=== PATIENT | female | born 1945 | race Caucasian/White ===

== ENCOUNTER 2018-12-01 17:19 | Inpatient (IN) ==
[2018-12-01] MEDS ORDERED: *HR* FentaNYL (PF) 100 MCG/2 ML VIAL ONE (17:24)
[2018-12-01] MEDS ORDERED: 0.9 % Sodium Chloride 1,000 ML ONE (17:24)
[2018-12-01] MEDS ORDERED: FentaNYL (PF) 1,000 MCG in 0.9 % Sodium Chloride 80 ML IVC STA (17:29)
[2018-12-01] MEDS ORDERED: Ipratropium/Albuterol Neb 3 ML ONE (17:30)
[2018-12-01] MEDS ORDERED: *HR* Midazolam HCl 5 MG/5 ML VIAL IVP ONE ×4 (17:31→17:51)
[2018-12-01] MEDS ORDERED: *HR* FentaNYL (PF) 100 MCG/2 ML VIAL IVP ONE (17:34)
[2018-12-01] MEDS ORDERED: 0.9 % Sodium Chloride 1,000 ML IVC ONE ×2 (17:37)
[2018-12-01 17:48] LABS: Basophils # 0.1 K/mcL (0.0-0.2); Basophils % 0.5 %; Eosinophils # 0.7 K/mcL (0.0-0.6); Eosinophils % 4.7 %; Hematocrit 43.1 % (35.3-44.9); Hemoglobin 13.9 g/dL (11.5-15.4); Immature Granulocytes % 0.9 % (0-4); Lymphocytes # 1.6 K/mcL (0.6-4.6); Lymphocytes % 10.9 %; Mean Corpuscular HGB Conc 32.3 g/dL (31.6-35.5); Mean Corpuscular Hemoglobin 31.6 pg (28.0-33.3); Mean Platelet Volume 8.5 fL (9.4-12.4); Monocytes # 0.8 K/mcL (0.0-1.3); Monocytes % 5.6 %; Neutrophils # 11.6 K/mcL (1.6-8.9); Platelet Count 313 K/mcL (140-400); Red Cell Distribution Width 13.7 % (11.5-14.5); Segmented Neutrophils % 77.4 %
[2018-12-01] MEDS ORDERED: *HR* Midazolam HCl 2 MG/2 ML VIAL IVP STA (17:50)
[2018-12-01] MEDS ORDERED: *HR* Midazolam HCl 5 MG/5 ML VIAL IVP STA (17:55)
[2018-12-01 17:56] LABS: ABG Base Excess -1 mEq/L (-2 to 3); ABG HCO3 26 mEq/L (21-27); ABG PCO2 52 mmHg (35-45); ABG PO2 > 630 mmHg (85-104); ABG TCO2 27 mEq/L (20-26); Blood Gas Modality AF; Blood Gas PEEP 5 cm H2O; Blood Gas VT 480 cc
[2018-12-01] MEDS ORDERED: 0.9 % Sodium Chloride 500 ML ONE (17:56)
[2018-12-01] MEDS ORDERED: Scopolamine Patch 1.5 MG PATCH.TD72 TD STA (18:07)
--- NOTE | 2018-12-01 18:10 | Emergency Department Note ---
Disposition Clinical Impression: COPD exacerbation Altered mental status Qualifiers: Altered mental status type: coma Coma depth: [place] coma 3-8 Coma timing: in the field (EMT or ambulance) Qualified Code(s): R40.2431 - [place] coma scale score 3-8, in the field [EMT or ambulance] Respiratory failure Qualifiers: Chronicity: acute Respiratory failure complication: hypoxia Qualified Code(s): J96.01 - Acute respiratory failure with hypoxia Disposition: Admitted As Inpatient Condition: Good Time of Disposition: 23:44 General Adult HPI - General Chief complaint: ED Shortness of Breath/Dyspnea Stated complaint: unreponsive Time Seen by Provider: 12/01/18 17:32 Source: EMS - History of Present Illness Pain Scale: 0 - Related Data Home Medications Medication Instructions Recorded Confirmed Albuterol Sulfate [Proair 1 puff IH PRN PRN 02/15/17 10/04/17 Respiclick] Calcium Citrate/Vitamin D3 1 each PO DAILY 02/15/17 10/04/17 [Calcium Citrate - Vit D Caplet] Fluticasone/Salmeterol [Advair 1 each IH DAILY 02/16/17 10/04/17 100-50 Diskus] Albuterol Sulfate [Proair Hfa] 2 puff IH Q4H PRN 12/01/18 12/01/18 Umeclidinium Brm/Vilanterol Tr 1 each IH DAILY 12/01/18 12/01/18 [Anoro Ellipta 62.5-25 Mcg INH] predniSONE [PredniSONE] 10 mg PO DAILY 12/01/18 12/01/18 Allergies Allergy/AdvReac Type Severity Reaction Status Date / Time aspirin AdvReac Nose Bleed Verified 12/02/18 09:55 Past Medical History - Past Medical History Medical history: Reports: other - Social History Smoking Status: Unknown if ever smoked Smokeless Tobacco Status: No Alcohol use: Reports: none Drug use: Reports: none Physical Exam - General General appearance: alert, in no apparent distress Course Vital Signs Temperature 97.7 F 12/01/18 17:21 Pulse Rate 133 12/01/18 17:21 Respiratory Rate 16 12/01/18 17:21 Blood Pressure 95/82 12/01/18 17:21 O2 Sat by Pulse Oximetry 100 12/01/18 17:21 Temperature 98.2 F 12/02/18 16:11 Pulse Rate 106 12/02/18 16:11 Respiratory Rate 22 12/02/18 16:11 Blood Pressure 116/70 12/02/18 16:11 O2 Sat by Pulse Oximetry 93 12/02/18 18:13 Oxygen Delivery Oxygen Delivery Bipap Medical Decision Making - Lab Data Result diagrams: 12/02/18 04:52 12/02/18 04:52 Lab Results 12/01/18 12/01/18 12/01/18 Range/Units 17:22 17:32 17:32 WBC 15.0 H (4.3-11.1) K/mcL RBC 4.40 (3.82-4.97) M/mcL Hgb 13.9 (11.5-15.4) g/dL Hct 43.1 (35.3-44.9) % MCV 98.0 (83.0-100.0) fL MCH 31.6 (28.0-33.3) pg MCHC 32.3 (31.6-35.5) g/dL RDW 13.7 (11.5-14.5) % Plt Count 313 (140-400) K/mcL MPV 8.5 L (9.4-12.4) fL Immature Gran % 0.9 (0-4) % Seg Neutrophils % 77.4 % Lymphocytes % 10.9 % Monocytes % 5.6 % Eosinophils % 4.7 % Basophils % 0.5 % Neutrophils # 11.6 H (1.6-8.9) K/mcL Lymphocytes # 1.6 (0.6-4.6) K/mcL Monocytes # 0.8 (0.0-1.3) K/mcL Eosinophils # 0.7 H (0.0-0.6) K/mcL Basophils # 0.1 (0.0-0.2) K/mcL Sample Site ABG pH (7.32-7.45) pH Units ABG pCO2 (35-45) mmHg ABG pO2 (85-104) mmHg ABG HCO3 (21-27) mEq/L ABG Total CO2 (20-26) mEq/L ABG O2 Saturation ABG Base Excess (-2 to 3) mEq/L Mickey Test Respiration Rate O2 Delivery Device Blood Gas Modality Inspired O2 (1-15=lpm dd30-636=%) Tidal Volume cc PEEP cm H2O Sodium 139 (136-145) mEq/L Potassium 4.0 (3.5-5.1) mEq/L Chloride 102 (98-107) mEq/L Carbon Dioxide 27 (23-29) mEq/L BUN 18 (8-23) mg/dL Creatinine 0.84 (0.60-1.20) mg/dL Est GFR ( Amer) > 60 (> 60) Est GFR (Non-Af Amer) > 60 (> 60) BUN/Creatinine Ratio 21 (6-26) Glucose 159 H (70-105) mg/dL POC Glucose 143 H (70-99) mg/dL Calculated Osmolality 293 (280-300) Lactic Acid (0.5-2.2) mmol/L Calcium 8.9 (8.6-10.3) mg/dL Total Bilirubin 0.4 (0.3-1.0) mg/dL Direct Bilirubin 0.1 (0.0-0.2) mg/dL Indirect Bilirubin 0.3 (0.0-1.2) mg/dL AST 30 (13-39) Units/L ALT 12 (7-52) Units/L Alkaline Phosphatase 40 (34-104) Units/L Troponin I < 0.03 (< 0.04) ng/mL Serum Total Protein 6.1 L (6.4-8.9) g/dL Albumin 3.8 (3.5-5.7) g/dL Globulin 2.3 L (2.4-3.5) g/dL Albumin/Globulin Ratio 1.7 (1.1-2.2) Specimen Rejected 12/01/18 12/01/18 12/01/18 Range/Units 17:32 17:49 21:24 WBC (4.3-11.1) K/mcL RBC (3.82-4.97) M/mcL Hgb (11.5-15.4) g/dL Hct (35.3-44.9) % MCV (83.0-100.0) fL MCH (28.0-33.3) pg MCHC (31.6-35.5) g/dL RDW (11.5-14.5) % Plt Count (140-400) K/mcL MPV (9.4-12.4) fL Immature Gran % (0-4) % Seg Neutrophils % % Lymphocytes % % Monocytes % % Eosinophils % % Basophils % % Neutrophils # (1.6-8.9) K/mcL Lymphocytes # (0.6-4.6) K/mcL Monocytes # (0.0-1.3) K/mcL Eosinophils # (0.0-0.6) K/mcL Basophils # (0.0-0.2) K/mcL Sample Site ABG pH 7.30 L (7.32-7.45) pH Units ABG pCO2 52 H (35-45) mmHg ABG pO2 > 630 H (85-104) mmHg ABG HCO3 26 (21-27) mEq/L ABG Total CO2 27 H (20-26) mEq/L ABG O2 Saturation TNP ABG Base Excess -1 (-2 to 3) mEq/L Mickey Test Respiration Rate 16 O2 Delivery Device Adult Vent Blood Gas Modality AF Inspired O2 100.0 (1-15=lpm lc52-115=%) Tidal Volume 480 cc PEEP 5 cm H2O Sodium (136-145) mEq/L Potassium (3.5-5.1) mEq/L Chloride (98-107) mEq/L Carbon Dioxide (23-29) mEq/L BUN (8-23) mg/dL Creatinine (0.60-1.20) mg/dL Est GFR ( Amer) (> 60) Est GFR (Non-Af Amer) (> 60) BUN/Creatinine Ratio (6-26) Glucose (70-105) mg/dL POC Glucose (70-99) mg/dL Calculated Osmolality (280-300) Lactic Acid 3.9 H 2.5 H (0.5-2.2) mmol/L Calcium (8.6-10.3) mg/dL Total Bilirubin (0.3-1.0) mg/dL Direct Bilirubin (0.0-0.2) mg/dL Indirect Bilirubin (0.0-1.2) mg/dL AST (13-39) Units/L ALT (7-52) Units/L Alkaline Phosphatase (34-104) Units/L Troponin I (< 0.04) ng/mL Serum Total Protein (6.4-8.9) g/dL Albumin (3.5-5.7) g/dL Globulin (2.4-3.5) g/dL Albumin/Globulin Ratio (1.1-2.2) Specimen Rejected 12/02/18 12/02/18 12/02/18 Range/Units 04:52 04:52 04:52 WBC 12.7 H (4.3-11.1) K/mcL RBC 4.35 (3.82-4.97) M/mcL Hgb 13.9 (11.5-15.4) g/dL Hct 42.9 (35.3-44.9) % MCV 98.6 (83.0-100.0) fL MCH 32.0 (28.0-33.3) pg MCHC 32.4 (31.6-35.5) g/dL RDW 13.7 (11.5-14.5) % Plt Count 321 (140-400) K/mcL MPV 8.6 L (9.4-12.4) fL Immature Gran % (0-4) % Seg Neutrophils % % Lymphocytes % % Monocytes % % Eosinophils % % Basophils % % Neutrophils # (1.6-8.9) K/mcL Lymphocytes # (0.6-4.6) K/mcL Monocytes # (0.0-1.3) K/mcL Eosinophils # (0.0-0.6) K/mcL Basophils # (0.0-0.2) K/mcL Sample Site ABG pH (7.32-7.45) pH Units ABG pCO2 (35-45) mmHg ABG pO2 (85-104) mmHg ABG HCO3 (21-27) mEq/L ABG Total CO2 (20-26) mEq/L ABG O2 Saturation ABG Base Excess (-2 to 3) mEq/L Mickey Test Respiration Rate O2 Delivery Device Blood Gas Modality Inspired O2 (1-15=lpm pj30-629=%) Tidal Volume cc PEEP cm H2O Sodium 137 (136-145) mEq/L Potassium 4.7 (3.5-5.1) mEq/L Chloride 105 (98-107) mEq/L Carbon Dioxide 23 (23-29) mEq/L BUN 18 (8-23) mg/dL Creatinine 0.75 (0.60-1.20) mg/dL Est GFR ( Amer) > 60 (> 60) Est GFR (Non-Af Amer) > 60 (> 60) BUN/Creatinine Ratio 24 (6-26) Glucose 133 H (70-105) mg/dL POC Glucose (70-99) mg/dL Calculated Osmolality 288 (280-300) Lactic Acid (0.5-2.2) mmol/L Calcium 8.9 (8.6-10.3) mg/dL Total Bilirubin 0.6 (0.3-1.0) mg/dL Direct Bilirubin (0.0-0.2) mg/dL Indirect Bilirubin (0.0-1.2) mg/dL AST 27 (13-39) Units/L ALT 14 (7-52) Units/L Alkaline Phosphatase 44 (34-104) Units/L Troponin I (< 0.04) ng/mL Serum Total Protein 6.1 L (6.4-8.9) g/dL Albumin 4.0 (3.5-5.7) g/dL Globulin 2.1 L (2.4-3.5) g/dL Albumin/Globulin Ratio 1.9 (1.1-2.2) Specimen Rejected Hemolyzed 12/02/18 12/02/18 Range/Units 05:58 06:29 WBC (4.3-11.1) K/mcL RBC (3.82-4.97) M/mcL Hgb (11.5-15.4) g/dL Hct (35.3-44.9) % MCV (83.0-100.0) fL MCH (28.0-33.3) pg MCHC (31.6-35.5) g/dL RDW (11.5-14.5) % Plt Count (140-400) K/mcL MPV (9.4-12.4) fL Immature Gran % (0-4) % Seg Neutrophils % % Lymphocytes % % Monocytes % % Eosinophils % % Basophils % % Neutrophils # (1.6-8.9) K/mcL Lymphocytes # (0.6-4.6) K/mcL Monocytes # (0.0-1.3) K/mcL Eosinophils # (0.0-0.6) K/mcL Basophils # (0.0-0.2) K/mcL Sample Site R Radial ABG pH 7.39 (7.32-7.45) pH Units ABG pCO2 45 (35-45) mmHg ABG pO2 249 H (85-104) mmHg ABG HCO3 27 (21-27) mEq/L ABG Total CO2 28 H (20-26) mEq/L ABG O2 Saturation 100 H ABG Base Excess 1 (-2 to 3) mEq/L Mickey Test Positive Respiration Rate O2 Delivery Device BiPAP Blood Gas Modality Inspired O2 50.0 (1-15=lpm po49-273=%) Tidal Volume cc PEEP cm H2O Sodium (136-145) mEq/L Potassium (3.5-5.1) mEq/L Chloride (98-107) mEq/L Carbon Dioxide (23-29) mEq/L BUN (8-23) mg/dL Creatinine (0.60-1.20) mg/dL Est GFR ( Amer) (> 60) Est GFR (Non-Af Amer) (> 60) BUN/Creatinine Ratio (6-26) Glucose (70-105) mg/dL POC Glucose (70-99) mg/dL Calculated Osmolality (280-300) Lactic Acid 1.5 (0.5-2.2) mmol/L Calcium (8.6-10.3) mg/dL Total Bilirubin (0.3-1.0) mg/dL Direct Bilirubin (0.0-0.2) mg/dL Indirect Bilirubin (0.0-1.2) mg/dL AST (13-39) Units/L ALT (7-52) Units/L Alkaline Phosphatase (34-104) Units/L Troponin I (< 0.04) ng/mL Serum Total Protein (6.4-8.9) g/dL Albumin (3.5-5.7) g/dL Globulin (2.4-3.5) g/dL Albumin/Globulin Ratio (1.1-2.2) Specimen Rejected Attestation Statement - Attestation Attestation: I examined this patient and my medical decision-making was reviewed with the Resident Physician. I agree with the documented findings, disposition and treatment plan as described except to the extent set forth below. Patient 73-year-old female that presents to emergency department with chief complaint of unresponsiveness and shortness of breath. Per the family the patient has history of end-stage COPD and today was increasing shortness of breath. The patient has also been having intermittent fevers. When EMS arrived the patient was minimally responsive and was having agonal respirations. The patient was intubated in the field by EMS. Once the patient arrived in the emergency department the patient is was initially sedated and in discussion with the patient's family the patient is a DNR and did not want intubation. The family was been adamant that the patient would not want to be intubated and has expressed the desire for the patient to be extubated. Currently we are waiting on the effects of the medications Exam patient is sedated and intubated on a ventilator patient is requiring sedation to maintain adequate ventilatory support. Medical decision management the patient will be extubated due to the patient wishes to not be intubated and the patient is family and that the patient would not want to be extubated even if it meant that she would . The patient will be treated for a COPD exacerbation and plan will be to admit the patient to hospital
[2018-12-01 18:12] LABS: Alanine Aminotransferase 12 Units/L (7-52); Albumin 3.8 g/dL (3.5-5.7); Albumin/Globulin Ratio 1.7 (1.1-2.2); Alkaline Phosphatase 40 Units/L (34-104); Aspartate Amino Transferase 30 Units/L (13-39); BUN/Creatinine Ratio 21 (6-26); Bilirubin,Direct 0.1 mg/dL (0.0-0.2); Bilirubin,Indirect 0.3 mg/dL (0.0-1.2); Bilirubin,Total 0.4 mg/dL (0.3-1.0); Blood Urea Nitrogen 18 mg/dL (8-23); Calcium 8.9 mg/dL (8.6-10.3); Carbon Dioxide 27 mEq/L (23-29); Chloride 102 mEq/L (98-107); Globulin 2.3 g/dL (2.4-3.5); Glucose 159 mg/dL (70-105); Osmolality,Calculated 293 (280-300); Sodium 139 mEq/L (136-145); Total Protein 6.1 g/dL (6.4-8.9); Troponin I < 0.03 ng/mL (< 0.04); eGFR For African Americans > 60 (> 60); eGFR For Non-African Americans > 60 (> 60)
--- NOTE | 2018-12-01 18:19 | Emergency Department Note ---
Disposition Clinical Impression: COPD exacerbation Altered mental status Qualifiers: Altered mental status type: coma Coma depth: [place] coma 3-8 Coma timing: in the field (EMT or ambulance) Qualified Code(s): R40.2431 - [place] coma scale score 3-8, in the field [EMT or ambulance] Respiratory failure Qualifiers: Chronicity: acute Respiratory failure complication: hypoxia Qualified Code(s): J96.01 - Acute respiratory failure with hypoxia Disposition: Admitted As Inpatient Condition: Good Referrals: Don Ortiz MD [Primary Care Provider] - Forms: ED Satisfaction Letter Time of Disposition: 23:44 General Adult HPI - General Chief complaint: ED Shortness of Breath/Dyspnea Stated complaint: unreponsive Time Seen by Provider: 12/01/18 17:32 Source: EMS Limitations: no limitations Nursing Notes Reviewed: Yes Vital Signs Reviewed: Yes - History of Present Illness HPI Narrative: Female patient presents to the emergency department in full respiratory arrest by EMS. She was found unresponsive and not breathing at home by EMS. She was given sedation medication and intubated. She had a pulse throughout the time. The states she does have a history of COPD and she had been progressively getting sicker recently. States that today she was very short of breath. Sat down on the toilet to go to the bathroom became increasingly short of breath and slumped over. States that she was unresponsive and stopped breat radha so he helped her to the floor. He states prior to her going to the floor she had her right arm stretched out in front of her. Pain Scale: 0 - Related Data Home Medications Medication Instructions Recorded Confirmed Albuterol Sulfate [Proair Hfa] 2 puff IH Q4H PRN 12/01/18 12/01/18 Umeclidinium Brm/Vilanterol Tr 1 each IH DAILY 12/01/18 12/01/18 [Anoro Ellipta 62.5-25 Mcg INH] predniSONE [PredniSONE] 10 mg PO DAILY 12/01/18 12/01/18 Allergies Allergy/AdvReac Type Severity Reaction Status Date / Time aspirin [ASA] AdvReac Anaphylaxis Verified 12/01/18 17:34 Limitations: ROS unobtainable due to patients medical condition Past Medical History - Past Medical History Source: obtained from family Medical history: Reports: COPD, other - Social History Smoking Status: Unknown if ever smoked Smokeless Tobacco Status: No Alcohol use: Reports: none Drug use: Reports: none Physical Exam - General Limitations: altered mental status General appearance: other (Withdrawals to pain. Not purposeful. Has moved all 4 extremities but again not purposeful.) - Head Head exam: atraumatic, normocephalic, normal inspection - Eye Eye exam: Present: normal appearance, PERRL, EOMI. Absent: scleral icterus - ENT ENT exam: normal exam, normal oropharynx, mucous membranes moist - Neck Neck exam: Present: normal inspection, trachea midline. Absent: tenderness, meningismus - Chest Chest inspection: Present: normal inspection, symmetric chest wall rise. Absent: tenderness - Respiratory Respiratory exam: Present: other (Tight throughout. Currently being bagged. No spontaneous respirations.) - Cardiovascular Cardiovascular exam: Present: regular rate, normal rhythm, normal heart sounds - Abdominal Exam Abdominal exam: Present: soft. Absent: distention, rigidity, organomegaly - Extremities Exam Extremities exam: Present: normal inspection, full ROM, other (No signs of trauma. Patient has been noted to move all of her extremities. They are not currently purposeful. She will not follow commands.). Absent: tenderness, pedal edema - Skin Skin exam: Present: warm, dry, intact, normal color. Absent: rash, cyanosis, diaphoresis Course Course Narrative: Female patient unresponsive. Intubated in the field. Was given 125 of Solu- Medrol as well as 40 of etomidate and 5 of Versed. They have noted that she was in respiratory arrest whenever they got to her. No trauma noted. The report no difficulty with the intubation. Patient has condensation in the ET tube with a tidal CO2 in the 40s. Chest x-ray was performed and shows good placement of the ET tube. Patient has very tight lung sounds throughout. We did provide pat ient with a DuoNeb through the ET tube. Patient had a very good response to this. With lung sounds that became clear and area did well after. She occasionally was coughing over the ET tube but would withdraw from pain cannot follow commands. Could not appreciate any trauma to her body. Objective believe that this is likely a respiratory failure secondary to COPD exacerbation as the states that she was having severe shortness of breath prior to her syncope. Does have a history of colon cancer. Abdomen is soft and nondistended. No fluid wave noted. We will get a head CT basic lab workup and provide patient with antibiotics for COPD exacerbation. Her is providing paperwork that states that he is the power of mergers and acquisitions attorney. He is seeing the patient would never want to be intubated. States that he would like for us to withdraw the ET tube at this time. I discussed that the patient had been given sedating medication and I do not feel that is acceptable at this time. He expressed understanding at this time. He is waiting for previous to come. I will further discuss this with him after the zig zag stitcher arrives. Currently I do not feel it is in the patient's best interest that she is heavily sedated with etomidate as well as first set and fentanyl. She was given an additional dose when she arrived in the trauma bay prior to the arriving secondary to her tearing up. - Reevaluation(s) Reevaluation #1: I had a lengthy discussion with the patient's . He does have the power of mergers and acquisitions attorney. He states multiple times that she would not want to be intubated. He states that he would like for her to be extubated at this time. States that this is what she would want. He reports that he did tell EMS that she would not want to be intubated. Patient has a power of mergers and acquisitions attorney paper with him. I discussed several times that we could not immediately extubated patient and she does have medication on board the its sedating. He becomes aggressive but expresses understanding. He is aware and I have told him multiple different ways that the patient may pass away as soon as we extubate her. She could also struggle to breathe when we extubated her. He expresses understanding and states that this is what she would want. He states that he does not want to wait for a couple days to see if the patient turns around she would not want that. I discussed that there is a chance because we intubated the patient that she would be weaker than her normal state and this may also contribute to her and he expresses understanding. Time: 18:00 Reevaluation #2: Patient is now responding to commands. She is opening her eyes. Still on BiPAP with a rate currently. Oxygen saturation is maintaining 100%. She was given Solu-Medrol by EMS. We did start her on antibiotics as well. CT of her chest with contrast shows no acute infiltrate. CTA of her head and neck without acute disease. We will admit patient to the hospital at this time. I do believe this is likely secondary to respiratory arrest secondary to her COPD exacerbation as her lung sounds were very tight when she initially arrived. I spoke with the stroke neurologist about the patient who requested a CTA of the head and neck. He states that if we are still concerned for an stroke she could have an MRI performed as an inpatient. Again she is currently moving all 4 extremities. She did have an infiltrate of her IV contrast in the left forearm. This area is mildly erythematous. A cold pack was placed and the area was injected per our protocol for infiltrate. Time: 23:26 - Consultations Consultation #1: I spoke with the neurologist at [facility]. He states that the story is very strong for a stroke however does recommend a CTA of the head and neck. States that the patient is currently out of the window for TPA however if there is a large vessel occlusion they would recommend to go to [facility] for a thrombectomy. We will obtain a CT at this time. Time: 21:54 Vital Signs Temperature 97.7 F 12/01/18 17:21 Pulse Rate 133 12/01/18 17:21 Respiratory Rate 16 12/01/18 17:21 Blood Pressure 95/82 12/01/18 17:21 O2 Sat by Pulse Oximetry 100 12/01/18 17:21 Temperature 97.7 F 12/01/18 17:21 Pulse Rate 100 12/01/18 23:13 Respiratory Rate 20 12/01/18 23:13 Blood Pressure 104/71 12/01/18 23:13 O2 Sat by Pulse Oximetry 100 12/01/18 23:13 Oxygen Delivery Oxygen Delivery Bipap Medical Decision Making - Medical Records Medical records reviewed: Yes I reviewed the patient's medical records. - Lab Data Lab results reviewed: Yes I reviewed the patient's lab results. Result diagrams: 12/01/18 17:32 12/01/18 17:32 Lab Results 12/01/18 12/01/18 12/01/18 Range/Units 17:32 17:32 17:32 WBC 15.0 H (4.3-11.1) K/mcL RBC 4.40 (3.82-4.97) M/mcL Hgb 13.9 (11.5-15.4) g/dL Hct 43.1 (35.3-44.9) % MCV 98.0 (83.0-100.0) fL MCH 31.6 (28.0-33.3) pg MCHC 32.3 (31.6-35.5) g/dL RDW 13.7 (11.5-14.5) % Plt Count 313 (140-400) K/mcL MPV 8.5 L (9.4-12.4) fL Immature Gran % 0.9 (0-4) % Seg Neutrophils % 77.4 % Lymphocytes % 10.9 % Monocytes % 5.6 % Eosinophils % 4.7 % Basophils % 0.5 % Neutrophils # 11.6 H (1.6-8.9) K/mcL Lymphocytes # 1.6 (0.6-4.6) K/mcL Monocytes # 0.8 (0.0-1.3) K/mcL Eosinophils # 0.7 H (0.0-0.6) K/mcL Basophils # 0.1 (0.0-0.2) K/mcL ABG pH (7.32-7.45) pH Units ABG pCO2 (35-45) mmHg ABG pO2 (85-104) mmHg ABG HCO3 (21-27) mEq/L ABG Total CO2 (20-26) mEq/L ABG O2 Saturation ABG Base Excess (-2 to 3) mEq/L Respiration Rate O2 Delivery Device Blood Gas Modality Inspired O2 (1-15=lpm lz29-037=%) Tidal Volume cc PEEP cm H2O Sodium 139 (136-145) mEq/L Potassium 4.0 (3.5-5.1) mEq/L Chloride 102 (98-107) mEq/L Carbon Dioxide 27 (23-29) mEq/L BUN 18 (8-23) mg/dL Creatinine 0.84 (0.60-1.20) mg/dL Est GFR ( Amer) > 60 (> 60) Est GFR (Non-Af Amer) > 60 (> 60) BUN/Creatinine Ratio 21 (6-26) Glucose 159 H (70-105) mg/dL Calculated Osmolality 293 (280-300) Lactic Acid 3.9 H (0.5-2.2) mmol/L Calcium 8.9 (8.6-10.3) mg/dL Total Bilirubin 0.4 (0.3-1.0) mg/dL Direct Bilirubin 0.1 (0.0-0.2) mg/dL Indirect Bilirubin 0.3 (0.0-1.2) mg/dL AST 30 (13-39) Units/L ALT 12 (7-52) Units/L Alkaline Phosphatase 40 (34-104) Units/L Troponin I < 0.03 (< 0.04) ng/mL Serum Total Protein 6.1 L (6.4-8.9) g/dL Albumin 3.8 (3.5-5.7) g/dL Globulin 2.3 L (2.4-3.5) g/dL Albumin/Globulin Ratio 1.7 (1.1-2.2) 12/01/18 12/01/18 Range/Units 17:49 21:24 WBC (4.3-11.1) K/mcL RBC (3.82-4.97) M/mcL Hgb (11.5-15.4) g/dL Hct (35.3-44.9) % MCV (83.0-100.0) fL MCH (28.0-33.3) pg MCHC (31.6-35.5) g/dL RDW (11.5-14.5) % Plt Count (140-400) K/mcL MPV (9.4-12.4) fL Immature Gran % (0-4) % Seg Neutrophils % % Lymphocytes % % Monocytes % % Eosinophils % % Basophils % % Neutrophils # (1.6-8.9) K/mcL Lymphocytes # (0.6-4.6) K/mcL Monocytes # (0.0-1.3) K/mcL Eosinophils # (0.0-0.6) K/mcL Basophils # (0.0-0.2) K/mcL ABG pH 7.30 L (7.32-7.45) pH Units ABG pCO2 52 H (35-45) mmHg ABG pO2 > 630 H (85-104) mmHg ABG HCO3 26 (21-27) mEq/L ABG Total CO2 27 H (20-26) mEq/L ABG O2 Saturation TNP ABG Base Excess -1 (-2 to 3) mEq/L Respiration Rate 16 O2 Delivery Device Adult Vent Blood Gas Modality AF Inspired O2 100.0 (1-15=lpm sb64-339=%) Tidal Volume 480 cc PEEP 5 cm H2O Sodium (136-145) mEq/L Potassium (3.5-5.1) mEq/L Chloride (98-107) mEq/L Carbon Dioxide (23-29) mEq/L BUN (8-23) mg/dL Creatinine (0.60-1.20) mg/dL Est GFR ( Amer) (> 60) Est GFR (Non-Af Amer) (> 60) BUN/Creatinine Ratio (6-26) Glucose (70-105) mg/dL Calculated Osmolality (280-300) Lactic Acid 2.5 H (0.5-2.2) mmol/L Calcium (8.6-10.3) mg/dL Total Bilirubin (0.3-1.0) mg/dL Direct Bilirubin (0.0-0.2) mg/dL Indirect Bilirubin (0.0-1.2) mg/dL AST (13-39) Units/L ALT (7-52) Units/L Alkaline Phosphatase (34-104) Units/L Troponin I (< 0.04) ng/mL Serum Total Protein (6.4-8.9) g/dL Albumin (3.5-5.7) g/dL Globulin (2.4-3.5) g/dL Albumin/Globulin Ratio (1.1-2.2) - Radiology Data Radiology results reviewed: Yes I reviewed the patient's radiology results. Chest X-Ray 12/01/18 17:33 IMPRESSION: No acute abnormality. D/ / Basilio Manriquez MD / Basilio Manriquez MD Interpreting Provider: Basilio Manriquez MD Head CT 12/01/18 17:35 IMPRESSION: 1. No acute intracranial hemorrhage or global mass effect. 2. Chronic atrophy and extensive microvascular ischemic disease. D/ / 12/01/2018 19:40:18 John Cunningham MD / james Interpreting Provider: John Cunningham MD Head CTA 12/01/18 21:50 IMPRESSION: Unremarkable CTA of the head and neck. Chronic small vessel ischemic disease. D/ / Kolby Sessions / Kolby Sessions Interpreting Provider: Kolby Sessions Neck CTA 12/01/18 21:50 IMPRESSION: Unremarkable CTA of the head and neck. Chronic small vessel ischemic disease. D/ / Kolby Sessions / Kolby Sessions Interpreting Provider: Kolby Sessions Chest CT 12/01/18 21:56 IMPRESSION: No acute disease. Centrilobular emphysema without airspace consolidation or pneumothorax. Technologist note states that there is contrast extravasation explaining the poor opacification of the vasculature. D/ / Yazan Lopez / Yazan Lopez Interpreting Provider: Yazan Lopez - EKG Data EKG #1 EKG attestation: Yes I reviewed and interpreted this EKG. EKG results narrative: Sinus tachycardia at a rate of 129. FL interval is 67. QRS duration is 87. QT is 347. QTC is 509. Patient does have a prolonged QT interval. He appears to have right atrial enlargement secondary to a notched P wave.
[2018-12-01] MEDS ORDERED: Piperacillin/Tazobactam 3.375 GM in 0.9 % Sodium Chloride Mini Bag 100 ML IVPB STA (20:02)
[2018-12-01] MEDS ORDERED: *HR* LORazepam 2 MG/ML VIAL ONE (20:38)
[2018-12-01] MEDS ORDERED: Azithromycin 500 MG in 0.9 % Sodium Chloride 250 ML IVPB ONE (20:44)
[2018-12-01] MEDS ORDERED: Ipratropium/Albuterol Neb 3 ML IH STA (20:50)
[2018-12-01] MEDS ORDERED: Isovue-370 500 ML BOTTLE IVP ONE (21:50)
[2018-12-02] MEDS ORDERED: Naloxone 0.4 MG/ML INJ IVP PRN (04:17)
[2018-12-02] MEDS ORDERED: 0.9 % Sodium Chloride 1,000 ML IVC ONE (04:23)
[2018-12-02] MEDS ORDERED: Albuterol 2.5 MG/3 ML NEBULIZER IH PRN (04:27)
--- NOTE | 2018-12-02 04:43 | Internal Med History&Physical ---
Date of Encounter: 12/02/18 Time of Encounter: 04:04 Internal Medicine - H&P: HPI Chief complaint: Acute hypoxic respiratory failure Admitted From: Emergency Dept Plans for Post Hospital Care: Home History of present illness: Ms. Silva is a 73 year old female Patient presented to the emergency department after being intubated in the field. Patient does not recall the event leading to her hospitalization, is not available at bedside. Details of the history obtained from the ER records. She was found at home not breathing in full respiratory arrest by the EMS squad. She did however have a pulse. She was given sedation medicine and intubated. She was then transported to the ER for further management. The states that the patient has a history of COPD and has been getting more ill recently. Today she had been very short of breath, went to sit down on the toilet and became more short of breath and then slumped over. Despite the patient's parent wishes of not ever being intubated or resuscitated, she was intubated by the EMS squad. Upon arrival to the ER the patient's was very adamant to have the patient extubated as this was not what she would have wanted. Emergency department provided her with IV steroids as well as further sedation medicines. There exam revealed the patient was very wheezy and tight and breathing treatments were provided. She was still unresponsive and not following commands. The emergency department physician discussed at length with the patient's regarding extubation. Continued to express that he would like her to be extubated and eventually extubation was performed. She was then placed on BiPAP and had 100% saturation of oxygen. Because of her initial presentation the emergency department also performed head CT's to help rule out possible stroke and spoke with on-call neurology at [facility] head CT and angiograms were negative for acute abnormalities. The [facility] neurologist recommended MRI to be performed if stroke is still a concern. Patient had no noticeable neuro deficits on exam. She was then admitted to the hospital on BiPAP in stable and improved condition. Emergency department vital signs: Temperature 97.7, pulse 133, respiratory rate 16, blood pressure 95/82, O2 saturation 90% on the ventilator CBC: White count 15.0, otherwise within normal limits BMP notable for a glucose of 159, otherwise within normal limits. Patient's initial lactic acid was 3.9, improving to 2.5 after 2 L of IV fluids. ABG: PH 7.3, PCO2 of 52, PO2 greater than 630 EKG showed sinus tachycardia, rate 129, QTC 509. No ST elevations or de pressions. Imaging as below, no acute abnormalities or infiltrates noted. Patient does have central lobar emphysema however on chest CT. Upon my evaluation, patient is resting comfortably in hospital bed in no acute distress. She is arousable and easily awakened. She is awake alert oriented 3. She is continue to use the BiPAP mask and is tolerating it well. She answers questions and is fully cooperative with the exam. She does not recall the events of the day leading up to hospitalization. She denies chest pain, abdominal pain, nausea, vomiting, diarrhea and constipation. She does recall that she had been feeling somewhat short of breath the last few days. She is also had a cough but it has been nonproductive. She does not wear oxygen at home. As per patient's she is DNR/DNI. Past Med Surg Social Fam HX - Past Medical History Medical history: COPD, other Additional medical history: unable to obtain - Social History Smoking Status: Unknown if ever smoked Smokeless Tobacco Status: No Alcohol use: none Drug use: none Internal Medicine - H&P: Meds Albuterol Sulfate [Proair Hfa] 2 puff IH Q4H PRN 12/01/18 [History] Umeclidinium Brm/Vilanterol Tr [Anoro Ellipta 62.5-25 Mcg INH] 1 each IH DAILY 12/01/18 [History] predniSONE [PredniSONE] 10 mg PO DAILY 12/01/18 [History] Allergy/AdvReac Type Severity Reaction Status Date / Time aspirin [ASA] AdvReac Anaphylaxis Verified 12/01/18 17:34 All Systems PM: A 10-system review of systems was performed and is negative for pertinent findings except as documented above in the HPI. - Constitutional Vitals: Temp Pulse Resp BP Pulse Ox 97.7 F 100 28 121/69 100 12/01/18 17:21 12/01/18 23:13 12/02/18 03:52 12/02/18 03:52 12/02/18 03:52 General appearance: Present: cooperative, A&O X 3, pleasant, no acute distress, answers questions appropriately Exam: - - Head Head exam: Present: normal inspection - Eye Eye exam: Present: EOMI, normal appearance - Respiratory Respiratory exam: Present: decreased breath sounds, CTAB. Absent: rales, respiratory distress, rhonchi, wheezes - Cardiovascular Cardiovascular exam: Present: RRR. Absent: diastolic murmur, systolic murmur - GI/Abdominal GI/Abdominal exam: Present: normal bowel sounds, soft. Absent: tenderness - Extremities Exam Extremities exam: Present: warm, radial pulses palpable and symmetrical. Absen t: calf tenderness, pedal edema, tenderness - Neurological Exam Neurological exam: Present: no focal deficits, strengths equal and symetr throughout. Absent: motor sensory deficit, facial droop, speech deficit - Skin Skin exam: Present: dry, normal color, warm Internal Med - H&P Results - Labs CBC & Chem 7: 12/01/18 17:32 12/01/18 17:32 Labs: Short CBC 12/01/18 Range/Units 17:32 WBC 15.0 H (4.3-11.1) K/mcL Hgb 13.9 (11.5-15.4) g/dL Hct 43.1 (35.3-44.9) % Plt Count 313 (140-400) K/mcL Neutrophils # 11.6 H (1.6-8.9) K/mcL BMP 12/01/18 17:32 Sodium 139 Potassium 4.0 Chloride 102 Carbon Dioxide 27 BUN 18 Creatinine 0.84 Glucose 159 H Calcium 8.9 Cardiac Enzymes 12/01/18 Range/Units 17:32 Troponin I < 0.03 (< 0.04) ng/mL Liver Function 12/01/18 Range/Units 17:32 Total Bilirubin 0.4 (0.3-1.0) mg/dL Direct Bilirubin 0.1 (0.0-0.2) mg/dL AST 30 (13-39) Units/L ALT 12 (7-52) Units/L Alkaline Phosphatase 40 (34-104) Units/L Albumin 3.8 (3.5-5.7) g/dL - ABG Interpretation ABG results: 12/01/18 17:49 ABG pH 7.30 L ABG pCO2 52 H ABG pO2 > 630 H ABG HCO3 26 ABG Total CO2 27 H ABG O2 Saturation TNP ABG Base Excess -1 - Impressions ITS Impressions Chest X-Ray 12/01/18 17:33 IMPRESSION: No acute abnormality. D/ / Basilio Manriquez MD / Basilio Manriquez MD Interpreting Provider: Basilio Manriquez MD Head CT 12/01/18 17:35 IMPRESSION: 1. No acute intracranial hemorrhage or global mass effect. 2. Chronic atrophy and extensive microvascular ischemic disease. D/ / 12/01/2018 19:40:18 John Cunningham MD / james Interpreting Provider: John Cunningham MD Head CTA 12/01/18 21:50 IMPRESSION: Unremarkable CTA of the head and neck. Chronic small vessel ischemic disease. D/ / Kolby Sessions / Kolby Sessions Interpreting Provider: Kolby Sessions Neck CTA 12/01/18 21:50 IMPRESSION: Unremarkable CTA of the head and neck. Chronic small vessel ischemic disease. D/ / Kolby Sessions / Kolby Sessions Interpreting Provider: Kolby Sessions Chest CT 12/01/18 21:56 IMPRESSION: No acute disease. Centrilobular emphysema without airspace consolidation or pneumothorax. Technologist note states that there is contrast extravasation explaining the poor opacification of the vasculature. D/ / Yazan Lopez / Yazan Lopez Interpreting Provider: Yazan Lopez - Assessment and Plan (1) Acute respiratory failure with hypoxia Current Visit: Yes Status: Acute Assessment and plan: Intubated in the field, then extubated in the emergency department due to her 's wishes. Patient is DNR/DNI. She has done well with the BiPAP mask, and is now awake alert and oriented. Patient was started on vancomycin, azithromycin and Zosyn in the emergency department however no infiltrate is seen on patient's chest x-ray. We will continue the patient's azithromycin at this time. Continue oxygen supplementation, and BiPAP Continue breathing treatments Continue IV steroids Continue IV azithromycin. (2) COPD exacerbation Current Visit: Yes Status: Acute Assessment and plan: Patient has a history of COPD exacerbation Continue oxygen supplementation Continue DuoNeb nebs and albuterol Continue IV steroids Azithromycin 500 mg IV daily Continuous pulse oximetry (3) Elevated lactic acid level Current Visit: Yes Status: Acute Assessment and plan: Likely secondary to hypoxia. Patient was given 2 L of IV fluids and started on IV maintenance. Repeat lactic acid level Continue IV fluid hydration Continue oxygenation supplementation as needed (4) Altered mental status Current Visit: Yes Status: Acute Assessment and plan: Secondary to hypoxic respiratory failure. Now resolved, patient is fully oriented on my exam. Continue BiPAP Treating COPD exacerbation as above Qualifiers: Altered mental status type: coma Coma depth: [place]lin coma 3-8 Coma timing: in the field (EMT or ambulance) Qualified Code(s): R40.2431 - [place] coma scale score 3-8, in the field [EMT or ambulance] (5) DVT prophylaxis Current Visit: Yes Status: Acute Assessment and plan: Subcutaneous heparin - Time Spent With Patient Total time spent is greater than 50% in coordination of care (as documented) at patient's floor/unit and/or counseling patient: Greater than 35 minutes
[2018-12-02 05:39] LABS: Hematocrit 42.9 % (35.3-44.9); Hemoglobin 13.9 g/dL (11.5-15.4); Mean Corpuscular HGB Conc 32.4 g/dL (31.6-35.5); Mean Corpuscular Volume 98.6 fL (83.0-100.0); Mean Platelet Volume 8.6 fL (9.4-12.4); Platelet Count 321 K/mcL (140-400); Red Blood Count 4.35 M/mcL (3.82-4.97); Red Cell Distribution Width 13.7 % (11.5-14.5); White Blood Count 12.7 K/mcL (4.3-11.1)
[2018-12-02 05:58] LABS: Alanine Aminotransferase 14 Units/L (7-52); Albumin/Globulin Ratio 1.9 (1.1-2.2); Alkaline Phosphatase 44 Units/L (34-104); Aspartate Amino Transferase 27 Units/L (13-39); BUN/Creatinine Ratio 24 (6-26); Bilirubin,Total 0.6 mg/dL (0.3-1.0); Blood Urea Nitrogen 18 mg/dL (8-23); Calcium 8.9 mg/dL (8.6-10.3); Carbon Dioxide 23 mEq/L (23-29); Chloride 105 mEq/L (98-107); Globulin 2.1 g/dL (2.4-3.5); Glucose 133 mg/dL (70-105); Osmolality,Calculated 288 (280-300); Potassium 4.7 mEq/L (3.5-5.1); Sodium 137 mEq/L (136-145); Total Protein 6.1 g/dL (6.4-8.9); eGFR For African Americans > 60 (> 60); eGFR For Non-African Americans > 60 (> 60)
[2018-12-02] MEDS: *HR* Heparin 5,000 UNIT/ML VIAL SQ SCH ×2 (06:08→17:47)
[2018-12-02] MEDS: Ipratropium/Albuterol Neb 3 ML IH SCH ×4 (06:22→23:51)
[2018-12-02 06:33] LABS: ABG Base Excess 1 mEq/L (-2 to 3); ABG HCO3 27 mEq/L (21-27); ABG Oxygen Saturation 100 % (95-98); ABG PCO2 45 mmHg (35-45); ABG PH 7.39 pH Units (7.32-7.45); ABG PO2 249 mmHg (85-104); ABG TCO2 28 mEq/L (20-26)
[2018-12-02] MEDS: MethylPREDNISolone 40 MG/ML VIAL IVP SCH ×3 (08:28→17:47)
[2018-12-02] MEDS ORDERED: *HR* Midazolam HCl 5 MG/5 ML VIAL IVP ONE (11:39)
--- NOTE | 2018-12-02 11:54 | Event Note ---
<Diann Stark - Last Filed: 12/02/18 14:31> Date of Encounter: 12/02/18 Time of Encounter: 09:45 I saw evaluated and examined this patient and reviewed objective data including labs and my medical decision-making was reviewed with the Resident Physician, Heather Clayton. I agree with the documented findings, disposition and treatment plan as described except to any changes set forth below. We independently had [id number] contact with the patient. Patient reports that her shortness of breath has improved when I saw her this morning. She was awake and alert. Oriented 2. Has been present at bedside. She continued to have wheezing. However later in the day, she apparently became confused and agitated and received 0.5 mg of Ativan. We will consider obtaining MRI of the brain to evaluate for any stroke if These episodes continue. In the meantime continue treating for underlying COPD. <Heather Clayton - Last Filed: 12/02/18 15:12> Date of Encounter: 12/02/18 Ms. Silva 73-year-old female with a past medical history of COPD. Patient presented to ER after being intubated in the field and does not recall events leading to hospitalization. states that she needed help to go to the restroom in the morning and then was not breathing properly and slumped over the restroom. She states she had not had any cold symptoms, shortness of breath previous to this. She is doing well at this time denies shortness of breath although continues to use 3 L by Oxymizer mask. She denies any chest pain, shortness of breath, nausea, vomiting, abdominal pain, weakness. Patient's white blood cell count initially 15 has decreased 12.7. Patient's vitals show tachycardia on and off most recent value 108, tachypnea up to 20 breaths per minute, blood pressure fluctuating between 120/82-141/90, 94% on 3 L was oxygen via Oxymizer mask. D-dimer was ordered and showed level 992 and V/Q scan has been ordered at this time. 1.Acute respiratory failure with hypoxia continue oxygen supplementation and BiPAP if needed, continue breathing treatments, IV steroids, azithromycin 2.COPD exacerbation history of COPD, continue oxygen supplementation, continue DuoNeb and albuterol, IV steroids, azithromycin, continuous pulse ox 3.Elevated lactic acid likely secondary to hypoxia 4.Altered mental status with a secondary to hypoxic respiratory failure, appears resolved at this time
[2018-12-02] MEDS ORDERED: *HR* LORazepam 2 MG/ML VIAL IVP ONE ×2 (12:07→12:08)
[2018-12-02 16:02] LABS: Bilirubin,Urine Negative (Negative); Blood,Urine Negative (Negative); Clarity,Urine Clear (Clear); Color,Urine Yellow (Yellow); Glucose,Urine (UA) Normal (Normal); Ketones,Urine Negative (Negative); Leukocyte Esterase,Urine Negative (Negative); Nitrite,Urine Negative (Negative); PH,Urine 5.5 pH Units (5.0-8.0); Protein,Urine Negative (Neg-Trace); Specific Gravity,Urine > 1.030 (1.010-1.025); Urobilinogen,Urine Normal (Normal)
--- NOTE | 2018-12-02 17:39 | Electrocardiograph Report ---
[facility] Test Date: 2018-12-01 Pat Name: Stella Silva Department: [id number] Room: 2NE34 Gender: F Furnace Repairer: : [id number] Requested By: Rossy Haley Order Number: [id number] Reading MD: Abner Willingham Measurements Intervals [place] Rate: 129 P: 64 WI: 67 QRS: 99 QRSD: 87 T: 54 QT: 347 QTc: 509 Interpretive Statements Sinus tachycardia Probable right ventricular hypertrophy Prolonged QT interval Electronically Signed On 12-02-2018 17:38:28 EDT by Abner Willingham
[2018-12-02] MEDS ORDERED: Azithromycin 500 MG in 0.9 % Sodium Chloride 250 ML IVPB SCH (21:00)
[2018-12-03] MEDS: MethylPREDNISolone 40 MG/ML VIAL IVP SCH ×2 (00:17→05:00)
[2018-12-03] MEDS: Ipratropium/Albuterol Neb 3 ML IH SCH (03:58)
[2018-12-03] MEDS: *HR* Heparin 5,000 UNIT/ML VIAL SQ SCH (05:00)
[2018-12-03 05:07] VITALS: BP 128/80
[2018-12-03 07:17] LABS: Basophils % 0.1 %; Hematocrit 37.4 % (35.3-44.9); Hemoglobin 12.1 g/dL (11.5-15.4); Immature Granulocytes % 0.5 % (0-4); Lymphocytes # 0.5 K/mcL (0.6-4.6); Lymphocytes % 4.1 %; Mean Corpuscular HGB Conc 32.4 g/dL (31.6-35.5); Mean Corpuscular Hemoglobin 31.3 pg (28.0-33.3); Mean Corpuscular Volume 96.9 fL (83.0-100.0); Monocytes # 0.3 K/mcL (0.0-1.3); Monocytes % 2.5 %; Neutrophils # 11.9 K/mcL (1.6-8.9); Platelet Count 274 K/mcL (140-400); Red Blood Count 3.86 M/mcL (3.82-4.97); Red Cell Distribution Width 13.6 % (11.5-14.5); Segmented Neutrophils % 92.8 %; White Blood Count 12.8 K/mcL (4.3-11.1)
[2018-12-03 07:27] LABS: Alanine Aminotransferase 11 Units/L (7-52); Albumin 3.7 g/dL (3.5-5.7); Albumin/Globulin Ratio 2.1 (1.1-2.2); Alkaline Phosphatase 36 Units/L (34-104); Aspartate Amino Transferase 22 Units/L (13-39); BUN/Creatinine Ratio 28 (6-26); Bilirubin,Total 0.4 mg/dL (0.3-1.0); Blood Urea Nitrogen 17 mg/dL (8-23); Calcium 8.7 mg/dL (8.6-10.3); Carbon Dioxide 26 mEq/L (23-29); Chloride 104 mEq/L (98-107); Globulin 1.8 g/dL (2.4-3.5); Glucose 145 mg/dL (70-105); Osmolality,Calculated 286 (280-300); Potassium 4.1 mEq/L (3.5-5.1); Sodium 136 mEq/L (136-145); Total Protein 5.5 g/dL (6.4-8.9); eGFR For African Americans > 60 (> 60); eGFR For Non-African Americans > 60 (> 60)
--- NOTE | 2018-12-03 10:05 | Discharge Summary ---
- NOTES TO OUTPATIENT PROVIDER Notes to Outpatient Provider: Patient hospitalized here for acute respiratory failure related to COPD exacerbation. Although patient status is DNR/DNI, she had been intubated in the field and brought to the ER. She was then extubated and has since been recovering. She is now doing better and is clinically stable for discharge. However she does appear to require home oxygen and based on my ezzz-as-fzbv evaluation and walk test, she has been prescribed 3 L oxygen which will be arranged for her prior to discharge. Orders not resulted at time of discharge: Pending orders 12/01/18 17:36 Culture,Blood [BC] Stat Date of Encounter: 12/03/18 Time of Encounter: 10:01 - Discharge Diagnosis (1) Acute respiratory failure with hypoxia Priority: Primary Status: Acute (2) Altered mental status Priority: Secondary Status: Resolved Qualifiers: Altered mental status type: coma Coma depth: Carlin coma 3-8 Coma timing: in the field (EMT or ambulance) Qualified Code(s): R40.2431 - [place] coma scale score 3-8, in the field [EMT or ambulance] (3) COPD exacerbation Priority: Secondary Status: Acute Hospital course: Ms. Silva is a 73 year old female Patient hospitalized here for acute respiratory failure related to COPD exacerbation. Although patient status is DNR/DNI, she had been intubated in the field and brought to the ER. She was then extubated and has since been recovering. She is now doing better and is clinically stable for discharge. However she does appear to require home oxygen and based on my jlqj-fj-[id number] evaluation and walk test, she has been prescribed 3 L oxygen which will be arranged for her prior to discharge. She will complete a prednisone tapering course and antibiotic course of azithromycin for a total of 5 days. Patient had also been confused and had altered mental status initially but this seems to have improved and patient is back to her baseline. She does appear to have episodes of confusion and delirium intermittently at home and may have underlying dementia which will need outpatient follow-up. Discharge discussed with: patient, family, nurse - Time Spent with Patient Total time spent providing and/or coordinating discharge services: Time spent: Greater than 30 minutes (40 min) - Discharge Medications Prescriptions: New Oxygen 1 each .ROUTE AD 90 Days #1 each predniSONE [PredniSONE] 10 mg PO DAILY #20 tablet Azithromycin [Zithromax] 500 mg PO DAILY #8 tablet Continued Calcium Citrate/Vitamin D3 [Calcium Citrate - Vit D Caplet] 1 each PO DAILY Albuterol Sulfate [Proair Respiclick] 1 puff IH PRN PRN PRN Reason: Shortness Of Breath Fluticasone/Salmeterol [Advair 100-50 Diskus] 1 each IH DAILY Umeclidinium Brm/Vilanterol Tr [Anoro Ellipta 62.5-25 Mcg INH] 1 each IH DAILY predniSONE [PredniSONE] 10 mg PO DAILY Albuterol Sulfate [Proair Hfa] 2 puff IH Q4H PRN PRN Reason: Shortness Of Breath Home Medications: Albuterol Sulfate [Proair Respiclick] 1 puff IH PRN PRN 02/15/17 [History] Calcium Citrate/Vitamin D3 [Calcium Citrate - Vit D Caplet] 1 each PO DAILY 02/15/17 [History] Fluticasone/Salmeterol [Advair 100-50 Diskus] 1 each IH DAILY 02/16/17 [History] Albuterol Sulfate [Proair Hfa] 2 puff IH Q4H PRN 12/01/18 [History] Umeclidinium Brm/Vilanterol Tr [Anoro Ellipta 62.5-25 Mcg INH] 1 each IH DAILY 12/01/18 [History] predniSONE [PredniSONE] 10 mg PO DAILY 12/01/18 [History] Azithromycin [Zithromax] 500 mg PO DAILY #8 tablet 12/03/18 [Rx] Oxygen 1 each .ROUTE AD 90 Days #1 each 12/03/18 [Rx] predniSONE [PredniSONE] 10 mg PO DAILY #20 tablet 12/03/18 [Rx] Allergies/Adverse Reactions: Allergy/AdvReac Type Severity Reaction Status Date / Time aspirin AdvReac Nose Bleed Verified 12/02/18 09:55 Date of admission: 12/02/18 10:02 Primary care physician: Don Ortiz MD Consults: 12/02/18 04:27 Consult to Nurse Navigator [CONS] Routine Comment: Discharging clinician: Diann Stark Anticipated date of discharge: 12/03/18 - Constitutional Vitals: Temp Pulse Resp BP Pulse Ox 97.6 F 106 28 128/80 97 12/03/18 05:00 12/03/18 05:00 12/03/18 05:00 12/03/18 05:00 12/03/18 09:55 General appearance: Present: cooperative, A&O X 3, pleasant, no acute distress, answers questions appropriately Exam: General: Patient is alert, mild distress, oriented x 3 Respiratory: Mild bilateral end expiratory wheezing. Cardiovascular: Regular rate and rhythm. s1 and s2 normal No clicks, rubs, gallops, or murmurs. No pedal edema Abdomen: Abdomen is soft, nontender. Bowel sounds are present Musculoskeletal: Spontaneously moving all extremities Skin: warm, dry, intact. Neuro: Alert oriented x 3 normal cranial nerves, no focal deficits - Patient Status Disposition: Home Health Service Condition: Good Functional capacity at discharge: independent ambulation Overall status at discharge: patient is progressing back to baseline - Discharge Instructions Instructions: Acute Respiratory Distress Syndrome (DC), Chronic Obstructive Pulmonary Disease (DC) Follow Up With: Don Ortiz MD [Primary Care Provider] - (Please call primary care provider to schedule a follow-up appointment.) Additional Instructions: Please take prednisone taper as ordered and then resume taking her usual dose of prednisone 10 mg after you finish taper. - Diet and Activity Activity: increase activity as tolerated, wear oxygen at all times Diet: low fat, low cholesterol, low salt diet
--- NOTE | 2018-12-03 15:24 | Physician Discharge Referral ---
Home Health/Hosp Referral Info Transfer to: Home Health Provider in Charge Post Discharge: PCP - Diagnosis (1) Acute respiratory failure with hypoxia Priority: Primary Status: Acute (2) Altered mental status Priority: Primary Status: Resolved (3) COPD exacerbation Priority: Primary Status: Acute - Respiratory Orders Oxygen / L per min (3) Smoking Cessation: Smoking cessation has been advised. For more information, call the [place] [employer] Quit Line at 3-751-KPRO-NOW. - Diet/Nutrition Diet/Nutrition Orders: Cardiac - Activity Activity Orders: Ambulate (with assist) - Services Needed Following services are medically necessary services: Physical Therapy, Occupational Therapy - Transfer Medications Prescriptions: Oxygen 1 each .ROUTE AD 90 Days #1 each predniSONE [PredniSONE] 10 mg PO DAILY #20 tablet Azithromycin [Zithromax] 500 mg PO DAILY #8 tablet Home Medications: Albuterol Sulfate [Proair Respiclick] 1 puff IH PRN PRN 02/15/17 [History] Calcium Citrate/Vitamin D3 [Calcium Citrate - Vit D Caplet] 1 each PO DAILY 02/15/17 [History] Fluticasone/Salmeterol [Advair 100-50 Diskus] 1 each IH DAILY 02/16/17 [History] Albuterol Sulfate [Proair Hfa] 2 puff IH Q4H PRN 12/01/18 [History] Umeclidinium Brm/Vilanterol Tr [Anoro Ellipta 62.5-25 Mcg INH] 1 each IH DAILY 12/01/18 [History] predniSONE [PredniSONE] 10 mg PO DAILY 12/01/18 [History] Azithromycin [Zithromax] 500 mg PO DAILY #8 tablet 12/03/18 [Rx] Oxygen 1 each .ROUTE AD 90 Days #1 each 12/03/18 [Rx] predniSONE [PredniSONE] 10 mg PO DAILY #20 tablet 12/03/18 [Rx] Allergies/Adverse Reactions: Allergy/AdvReac Type Severity Reaction Status Date / Time aspirin AdvReac Nose Bleed Verified 12/02/18 09:55 Certification: Further, I certify that my clinical findings support that this patient is homebound (i.e. absences from home require considerable and taxing effort and are for medical reasons or sikh services or infrequently or short duration when for other reasons) because: Homebound Reason: Patient requires assistance of a person or device to safely leave home Attestation: My signature below is to certify that this patient is under my care and that I, or nurse practitioner, or a physician's research program assistant working with me, has a zdfk-[id number] encounter with this patient.
== END 2018-12-03 11:40 | disposition home health service (06) | DRG 208 ==
LOC: EDBD → 2NENU 17:19 → EMEROOARM 17:19 → MERGE 23:53 → 2NENU 12-02 00:22 → SUATTDRO 12-02 10:02
PROVIDERS: ADMIT Family Medicine; ATTEND Internal Medicine

== ENCOUNTER 2019-04-05 08:27 | Observation (INO) ==
[2019-04-05] MEDS ORDERED: Ipratropium/Albuterol Neb 3 ML IH ONE ×4 (08:36→09:58)
[2019-04-05] MEDS ORDERED: Albuterol 2.5 MG/3 ML NEBULIZER IH ONE (08:36)
[2019-04-05] MEDS ORDERED: methylPREDNISolone 125 MG/2 ML VIAL IVP ONE (08:36)
[2019-04-05 09:13] LABS: Basophils # 0.1 K/mcL (0.0-0.2); Basophils % 0.5 %; Eosinophils % 4.1 %; Hematocrit 48.8 % (35.3-44.9); Hemoglobin 15.9 g/dL (11.5-15.4); Immature Granulocytes % 2.3 % (0-4); Lymphocytes # 1.4 K/mcL (0.6-4.6); Lymphocytes % 5.7 %; Mean Corpuscular HGB Conc 32.6 g/dL (31.6-35.5); Mean Corpuscular Hemoglobin 31.9 pg (28.0-33.3); Mean Platelet Volume 8.6 fL (9.4-12.4); Monocytes # 0.8 K/mcL (0.0-1.3); Monocytes % 3.2 %; Neutrophils # 20.5 K/mcL (1.6-8.9); Platelet Count 300 K/mcL (140-400); Red Blood Count 4.98 M/mcL (3.82-4.97); Segmented Neutrophils % 84.2 %; White Blood Count 24.4 K/mcL (4.3-11.1)
[2019-04-05 09:37] LABS: Alanine Aminotransferase 18 Units/L (7-52); Albumin 4.6 g/dL (3.5-5.7); Albumin/Globulin Ratio 1.8 (1.1-2.2); Alkaline Phosphatase 50 Units/L (34-104); Aspartate Amino Transferase 31 Units/L (13-39); BUN/Creatinine Ratio 28 (6-26); Bilirubin,Direct 0.1 mg/dL (0.0-0.2); Bilirubin,Indirect 0.3 mg/dL (0.0-1.0); Bilirubin,Total 0.4 mg/dL (0.3-1.0); Blood Urea Nitrogen 25 mg/dL (8-23); Calcium 9.2 mg/dL (8.6-10.3); Carbon Dioxide 27 mEq/L (23-29); Chloride 102 mEq/L (98-107); Globulin 2.6 g/dL (2.4-3.5); Glucose 223 mg/dL (70-105); Osmolality,Calculated 303 (280-300); Potassium 3.8 mEq/L (3.5-5.1); Sodium 141 mEq/L (136-145); Total Protein 7.2 g/dL (6.4-8.9); Troponin I 0.03 ng/mL (< 0.04); eGFR For African Americans > 60 (> 60); eGFR For Non-African Americans > 60 (> 60)
[2019-04-05] MEDS ORDERED: Azithromycin 500 MG in 0.9 % Sodium Chloride 250 ML IVPB ONE (10:06)
[2019-04-05] MEDS ORDERED: cefTRIAXone 1,000 MG in Water for inj. (sterile) 10 ML IVP ONE (10:06)
[2019-04-05] MEDS ORDERED: Ondansetron 4 MG/2 ML VIAL IVP PRN (10:44)
[2019-04-05] MEDS ORDERED: Naloxone 0.4 MG/ML INJ IVP PRN (10:44)
[2019-04-05] MEDS ORDERED: 0.9 % Sodium Chloride 1,000 ML IVC SCH (10:45)
[2019-04-05 10:48] LABS: ABG Base Excess 2 mEq/L (-2 to 3); ABG HCO3 29 mEq/L (21-27); ABG Oxygen Saturation 97 % (95-98); ABG PCO2 54 mmHg (35-45); ABG PH 7.34 pH Units (7.32-7.45); ABG PO2 98 mmHg (85-104); ABG TCO2 31 mEq/L (20-26)
[2019-04-05] MEDS ORDERED: Isovue-370 500 ML BOTTLE IVP ONE (10:49)
[2019-04-05] MEDS: Ipratropium/Albuterol Neb 3 ML IH SCH ×4 (10:56→23:28)
[2019-04-05] MEDS: Budesonide/Formoterol 160/4.5 1 PUFF INH IH SCH ×2 (11:18→20:23)
[2019-04-05 12:53] LABS: Bilirubin,Urine Negative (Negative); Blood,Urine Trace (Negative); Clarity,Urine Clear (Clear); Color,Urine Yellow (Yellow); Glucose,Urine (UA) 250 mg/dL (Normal); Ketones,Urine Negative (Negative); Leukocyte Esterase,Urine Negative (Negative); Nitrite,Urine Negative (Negative); PH,Urine 5.5 pH Units (5.0-8.0); Protein,Urine 30 mg/dL (Neg-Trace); Specific Gravity,Urine > 1.030 (1.010-1.025); Urobilinogen,Urine Normal (Normal)
[2019-04-05 12:56] LABS: Bacteria,Urine None Seen per hpf (None-Few); Squamous Epithelial Cell,Urine Many per lpf (None-Few)
[2019-04-05 13:55] LABS: Granular Casts,Urine Few per lpf (None Seen); Hyaline Casts,Urine Few per lpf (None-Few)
[2019-04-05 13:58] LABS: Transitional Epi Cells,Urine Few per hpf (None-Few)
[2019-04-05] MEDS: *HR* Heparin 5,000 UNIT/ML VIAL SQ SCH ×2 (15:09→21:00)
[2019-04-05] MEDS: methylPREDNISolone 125 MG/2 ML VIAL IVP SCH (17:15)
[2019-04-05 17:31] LABS: Adenovirus Not Detected (Not Detect); Bordetella Pertussis Not Detected (Not Detect); Chlamydophila pneumoniae Not Detected (Not Detect); Coronavirus 229E Not Detected (Not Detect); Coronavirus HKU1 Not Detected (Not Detect); Coronavirus NL63 Not Detected (Not Detect); Coronavirus OC43 Not Detected (Not Detect); Human Metapneumovirus Not Detected (Not Detect); Human Rhinovirus/Enterovirus Not Detected (Not Detect); Influenza A Subtype 2009 H1 Not Detected (Not Detect); Influenza B Not Detected (Not Detect); Mycoplasma pneumoniae Not Detected (Not Detect); Parainfluenza Virus 1 Not Detected (Not Detect); Parainfluenza Virus 2 Not Detected (Not Detect); Parainfluenza Virus 3 Not Detected (Not Detect); Parainfluenza Virus 4 Not Detected (Not Detect); Respiratory Syncytial Virus Not Detected (Not Detect)
[2019-04-06] MEDS: methylPREDNISolone 125 MG/2 ML VIAL IVP SCH ×2 (01:16→10:12)
[2019-04-06] MEDS: Ipratropium/Albuterol Neb 3 ML IH SCH ×4 (04:15→16:00)
[2019-04-06] MEDS: *HR* Heparin 5,000 UNIT/ML VIAL SQ SCH (05:45)
[2019-04-06 06:43] LABS: Basophils % 0.1 %; Hematocrit 40.2 % (35.3-44.9); Immature Granulocytes % 0.7 % (0-4); Lymphocytes # 0.6 K/mcL (0.6-4.6); Lymphocytes % 7.6 %; Mean Corpuscular HGB Conc 32.6 g/dL (31.6-35.5); Mean Corpuscular Hemoglobin 31.6 pg (28.0-33.3); Mean Corpuscular Volume 96.9 fL (83.0-100.0); Mean Platelet Volume 8.8 fL (9.4-12.4); Monocytes # 0.1 K/mcL (0.0-1.3); Monocytes % 1.2 %; Neutrophils # 6.8 K/mcL (1.6-8.9); Platelet Count 309 K/mcL (140-400); Red Blood Count 4.15 M/mcL (3.82-4.97); Segmented Neutrophils % 90.4 %
[2019-04-06 06:44] LABS: White Blood Count 7.5 K/mcL (4.3-11.1)
[2019-04-06 06:45] LABS: Hemoglobin 13.1 g/dL (11.5-15.4)
[2019-04-06 07:02] LABS: BUN/Creatinine Ratio 28 (6-26); Blood Urea Nitrogen 19 mg/dL (8-23); Calcium 8.7 mg/dL (8.6-10.3); Carbon Dioxide 27 mEq/L (23-29); Chloride 102 mEq/L (98-107); Glucose 175 mg/dL (70-105); Osmolality,Calculated 295 (280-300); Potassium 4.4 mEq/L (3.5-5.1); Sodium 139 mEq/L (136-145); eGFR For African Americans > 60 (> 60); eGFR For Non-African Americans > 60 (> 60)
[2019-04-06] MEDS: Budesonide/Formoterol 160/4.5 1 PUFF INH IH SCH (07:33)
[2019-04-06] MEDS ORDERED: Azithromycin 500 MG in 0.9 % Sodium Chloride 250 ML IVPB SCH (09:00)
[2019-04-06] MEDS ORDERED: cefTRIAXone 1,000 MG in 0.9 % Sodium Chloride Mini Bag 100 ML IVPB SCH (09:00)
[2019-04-06 11:44] VITALS: BP 105/65
== END 2019-04-06 16:49 | disposition home or self-care (01) ==
LOC: 2NENU 08:27 → EMEROOARM 08:27 → SUATTDRO 11:43 → 2NENU 12:55
PROVIDERS: ADMIT Internal Medicine; ATTEND Family Medicine